=== PATIENT | female | born 1975 | race Caucasian/White ===

== ENCOUNTER → 2018-03-04 | Outpatient (CLI) | payer BC ==
[~2018-03-04] MED LIST: FLOMAX0.4 MG PO; HYDROCODON-ACE1 EAC7 PO; NAPROXEN500 MG PO; ZOFRAN ODT4 MG PO
== END | disposition home or self-care (01) ==
LOC: RES 07:33
DX: R94.2 Abnormal results of pulmonary function studies (principal); J98.4 Other disorders of lung
CPT/HCPCS: 94070; 94726; 94729